=== PATIENT | female | born 1980 | race Caucasian/White ===

== ENCOUNTER → 2016-10-25 | Outpatient (CLI) | payer BC ==
[2016-10-25 10:02] LABS: BASOPHILS % (AUTO) 0.2 % (0-2); EOSINOPHILS # (AUTO) 0.1 T/MM3 (0-0.5); EOSINOPHILS % (AUTO) 2.1 % (0-4); IMMATURE GRANULOCYTE # (AUTO) 0.01 T/MM3 (0.00-0.03); IMMATURE GRANULOCYTE % (AUTO) 0.2 % (0.0-0.5); LYMPHOCYTES # (AUTO) 1.9 T/MM3 (1-4.8); LYMPHOCYTES % (AUTO) 32.9 % (23-45); MEAN CORPUSCULAR HGB 30.1 UUG (26-34); MEAN CORPUSCULAR HGB CONC(MCHC 34.2 GM/DL (31-37); MEAN PLATELET VOLUME 10.6 UM3 (9.4-12.4); MONOCYTES # (AUTO) 0.4 T/MM3 (0-0.8); MONOCYTES % (AUTO) 6.6 % (0-9.0); NEUTROPHILS #(AUTO)-ABSOLUTE 3.3 T/MM3 (1.8-7.7); RED BLOOD COUNT 4.32 M/MM3 (4.00-5.20); WBC - WHITE BLOOD COUNT 5.6 T/MM3 (4.5-11.0)
[2016-10-25 10:12] LABS: ALBUMIN 4.5 G/DL (3.5-5.0); ANION GAP 14 MEQ/L (5-15); BUN/CREATININE RATIO 18 RATIO (6-26); CALCIUM 9.2 MG/DL (8.4-10.2); CHLORIDE 108 MEQ/L (98-107); CO2 - CARBON DIOXIDE 20 MEQ/L (22-30); CREATININE 0.8 MG/DL (0.7-1.2); GLOMERULAR FILTRATION RATE 81; GLUCOSE 99 MG/DL (65-110); MAGNESIUM 2.1 MG/DL (1.6-2.3); PHOSPHORUS 3.2 MG/DL (2.5-4.5); POTASSIUM 4.7 MEQ/L (3.6-5); SODIUM 142 MEQ/L (134-144); URIC ACID 4.5 MG/DL (2.5-7.5)
[2016-10-25 10:12] LABS: BLOOD, URINE 1+ (NEGATIVE); COLOR,URINE YELLOW (YELLOW); LEUKOCYTE ESTERASE ,URINE NEGATIVE (NEGATIVE); NITRITE,URINE NEGATIVE (NEGATIVE); UROBILINOGEN,URINE 0.2 EU/DL (NORMAL)
[2016-10-25 10:17] LABS: CREATININE, URINE RANDOM 42.8 MG/DL
[2016-10-25 10:40] LABS: RBC,URINE 0-1 /HPF (0-3); WBC,URINE 0-1 /HPF (0-5)
[2016-10-25 10:44] LABS: BACTERIA,URINE NONE SEEN (NEGATIVE); SQUAMOUS EPITHELIAL CELL,UR 0-5
== END ==
LOC: LAB 09:41
PROVIDERS: ATTEND Internal Medicine Nephrology
DX: I12.9 Hypertensive chronic kidney disease with stage 1 through stage 4 chronic kidney disease, or unspecified chronic kidney disease (principal); E55.9 Vitamin D deficiency, unspecified; N18.2 Chronic kidney disease, stage 2 (mild)
CPT/HCPCS: 36415; 80069; 81001; 82306; 82570; 83735; 83970; 84156; 84550; 85025